=== PATIENT | female | born 1995 | race Asian ===

== ENCOUNTER 2025-06-01 08:40 | Inpatient (IN) | payer BC, SELFPAY ==
--- NOTE | 2025-05-31 07:38 | PC.NURSE ---
PT ON PHONE, INFORMED OF NO BEDS AVAILABLE AT THIS TIME FOR IOL, EDUCATED ON KICK COUNT AND LABOR PRECAUTIONS, INFORMED OF WILL CALL PT ONCE BED BECOMES AVAILABLE, PT VERBALIZED UNDERSTANDING
[2025-06-01] VITALS (99 sets, daily range): BP systolic 112–155; BP diastolic 63–95; PULSE 74–117; RESP 17; TEMP 36.6–36.9; O2SAT 92–99; BMI 28.3
--- NOTE | 2025-06-01 09:57 | PD.LDHP ---
Documentation for date of: 06/01/25 OB Labor/Induct. HPI History of Present Illness History of present illness: H and P dictated STAT in [facility] on line #9. [id number] Meds Home Medications and Allergies Allergies Allergy/AdvReac Type Severity Reaction Status Date / Time No Known Allergies Allergy Verified 06/01/25 09:50 OB Exam Physical Exam Vital signs: Pulse BP 94 138/78 H 06/01/25 09:56 06/01/25 09:56
[2025-06-01 09:58] LABS: Basophils # (Auto) 0.1 Thou/mm3 (0.0-0.2); Basophils % (Auto) 1 % (0-2.5); Eosinophils # (Auto) 0.1 Thou/mm3 (0.0-0.5); Eosinophils % (Auto) 1 % (0-10); Hematocrit 38.4 % (36.0-46.0); Hemoglobin 12.5 g/dL (12.0-16.0); Immature Granulocytes Auto 0.04 Thou/mm3 (0.00-0.00); Lymphocytes # (Auto) 2.0 Thou/mm3 (1.0-4.8); Lymphocytes % (Auto) 24 % (10-50); Mean Corpuscular HGB Conc 32.6 g/dl (31.0-37.0); Mean Corpuscular Hemoglobin 25.5 pg (25.0-35.0); Mean Corpuscular Volume 78 fL (80-100); Monocytes # (Auto) 0.7 Thou/mm3 (0.0-0.8); Monocytes % (Auto) 8 % (0-12); Neutrophils # (Auto) 5.7 Thou/mm3 (1.8-7.7); Neutrophils % (Auto) 66 % (37-80); Nucleated Red Blood Cell # 0.00 Thou/mm3 (0.00-0.00); Nucleated Red Blood Cell % 0 /100 WBC (0); Platelet Count 283 Thou/mm3 (140-440); RDW Standard Deviation 39.0 fL (36.4-46.3); Red Blood Count 4.91 Miln/mm3 (4.00-5.20); White Blood Count 8.6 Thou/mm3 (3.6-11.0)
--- NOTE | 2025-06-01 10:17 | ESHP_ITS ---
RE: FLAVIO BLUM : 1995 DATE OF ADMISSION: 06/01/2025 This is a 29-year-old 2 para 1-0-0-1 with due date of 06/04 with intrauterine at 39 weeks and 4 days who presents to labor and delivery for induction of labor for gestational diabetes mellitus class A1 well-controlled. Patient has had serial maternal medicine ultrasounds throughout her which have shown normal anatomy and adequate interval growth. The most recent ultrasound on 05/02 showed growth at the 29th percentile. She denies any leaking or bleeding. She reports normal movement. ALLERGIES: NO KNOWN DRUG ALLERGIES. MEDICATIONS: 1. multivitamin 1 p.o. daily. 2. Aspirin 81 mg 1 p.o. daily. SOCIAL HISTORY: She denies any alcohol, drug use or smoking. PAST MEDICAL HISTORY: delivery at 32 weeks gestation. Gestational diabetes mellitus class A1. PAST SURGICAL HISTORY: Denies. OBSTETRIC HISTORY: On 06/03/2018 a 32-week normal vaginal delivery of a 4-pound male, complicated by spontaneous labor. REVIEW OF SYSTEMS: She denies any chest pain, palpitations, cough, fever, flank pain, shortness of breath, or lower extremity pain. PHYSICAL EXAMINATION: GENERAL: Blood pressure initially 140/91, repeat 119/74. Heart rate 88. Respiration 18. Temperature is 98.6. HEENT: Oropharynx and sclerae clear. LUNGS: Clear to auscultation bilaterally. HEART: Regular rate rhythm. ABDOMEN: Gravid, consistent with estimated weight of 7-3/4 pounds. PELVIC: Exam per RN is 4 cm dilated, 70% effaced, -3 station, vertex, intact. EXTREMITIES: Nontender. SKIN: No gross rashes or lesions. NEUROLOGICAL: No focal deficit. ASSESSMENT AND PLAN: 1. Intrauterine at 39 weeks and 4 days. 2. Gestational diabetes mellitus class A1, well-controlled. 3. Induction of labor. Anticipate spontaneous vaginal delivery. Informed consent was obtained. The patient is made aware of the risk, complication, alternative, and benefits of operative vaginal delivery and delivery. She agrees with these modes of delivery if indicated. DT: 09:50:12 TT: 10:15:00 Ref: [id number] - TID: [id number]
[2025-06-01 10:48] LABS: Syphilis Nonreactive (Nonreactive)
[2025-06-01] MEDS: OXYTOCIN in NS 30 units 30 UNIT/500 ML BAG IV (10:55)
[2025-06-01 11:19] LABS: Alanine Aminotransferase < 7 U/L (10-49); Albumin, Serum 4.1 gm/dL (3.5-5.0); Albumin/Globulin Ratio 1.9 (1.2-2.2); Alkaline Phosphatase 162 U/L (46-116); Anion Gap 11 (7-16); Aspartate Amino Transferase 19 U/L (0-34); BUN/Creatinine Ratio 10 Ratio (12-20); Bilirubin,Total 0.4 mg/dL (0.3-1.2); Blood Urea Nitrogen 7 mg/dL (9-23); Calcium 10.1 mg/dL (8.3-10.6); Calcium (Corrected) 10.1 mg/dL (8.5-10.1); Carbon Dioxide 23.4 mMol/L (20.0-31.0); Chloride 105 mMol/L (98-107); Creatinine (Component) 0.7 mg/dL (0.6-1.3); Estimated Creatinine Clearance 94.3 mL/min (>60); Globulin 2.2 gm/dL (2.3-3.5); Glucose 90 mg/dL (74-106); Osmolality,Calculated 275 (275-295); Potassium 4.4 mMol/L (3.4-5.1); Sodium 139 mMol/L (136-145); Total Protein 6.3 gm/dL (5.7-8.2); Uric Acid 5.4 mg/dL (3.1-7.8); eGFR > 60 See Note
[2025-06-01 11:31] LABS: Fibrinogen 500 mg/dL (175-375); INR 0.9 (0.9-1.3); Partial Thromboplastin Time 27.7 Seconds (22.0-36.0); Prothrombin Time 9.5 Seconds (9.0-12.2)
[2025-06-01 14:18] LABS: Collection Type, Urine Clean Catch
[2025-06-01 14:43] LABS: Bacteria,Urine 1+; Bilirubin,Urine Negative (Negative); Blood,Urine Negative (Negative); Clarity,Urine Clear (Clear/Hazy); Color,Urine Lt-Yellow (Lt Yel-Yel); Glucose, Urine Negative (Negative); Ketones,Urine Negative (Negative); Leukocyte Esterase,Urine Positive (Negative); Nitrite,Urine Negative (Negative); PH,Urine 6.5 (5.0-7.0); Protein,Urine Negative (Neg - Trace); RBC,Urine 1 /hpf (0-3); Specific Gravity,Urine 1.007 (1.001-1.035); Squamous Epithelial Cell,Urine 8 /hpf (0-5); Urobilinogen,Urine Negative mg/dL (0.0-1.0); WBC,Urine 5 /hpf (0-5)
[2025-06-01 14:51] LABS: Creatinine,Random Urine 39 mg/dL (30-125); Protein Total, Random Urine 10 mg/dL (1-14)
[2025-06-01] MEDS: RINGERS LACTATED 1000 ML 1,000 ML 100 ML IV (16:16)
[2025-06-02] VITALS (100 sets, daily range): BP systolic 121–149; BP diastolic 63–91; PULSE 80–128; RESP 15–18; TEMP 36.4–37; O2SAT 90–99
[2025-06-02] MEDS: OXYTOCIN in NS 20 units 20 UNIT/1,000 ML BAG 125 UNIT IV (03:59)
[2025-06-02] MEDS: METHYLERGONOVINE INJ 0.2 MG/ML VIAL IM (04:02)
[2025-06-02] MEDS: BENZO/LANO/ALOE (Dermoplast) 60 GM CAN 1 SPRAY TOP (04:15)
--- NOTE | 2025-06-02 04:17 | PD.LDDS ---
DS: Providers Provider Date of admission: 06/01/25 08:40 Primary care physician: Danny Willis MD Admitting Provider: Angus Sun MD Attending Provider on Admission: Angus Sun MD Attending Provider on DC: Angus Sun MD Discharging Provider: Angus Sun MD DS: Diagnosis Problem List Completed Was Problem List Reviewed/Reconciled?: Yes Summary/Hosp Course Brief History: H and P dictated STAT in [facility] on line #9. [id number] Peripartum Data Delivery Method: Operative Vaginal Delivery Episiotomy Description: None Laceration Description: see Delivery Summary 1: Gender: Female Disposition of : home Time Spent with Patient Time attestation: Total time spent providing and/or coordinating discharge services: Exam Vital Signs Temp Pulse Resp BP Pulse Ox O2 Del Method 97.6 F 111 H 16 129/66 98 Room Air 06/02/25 01:31 06/02/25 04:04 06/02/25 01:31 06/02/25 04:04 06/02/25 04:13 06/02/25 01:31 Discharge Plan Plan Patient Disposition: HOME (Self Care) Patient condition on transfer: Stable Prescriptions/Referrals Prescriptions/Med Rec: New ibuprofen 600 mg tablet 600 mg PO Q6H PRN (Reason: pain) Qty: 30 0RF Referrals: Danny Willis MD [Primary Care Provider, Family Practice] Patient/Caregiver Discharge Instructions Discharge Activity: activity as tolerated Other Discharge Activity Instructions:: Follow up office 6 weeks. Print Language: [place] Stand Alone Forms: Trud[facility] Award Info., Patient Portal Info Letter Planned Discharge Date 06/03/25
--- NOTE | 2025-06-02 04:18 | OBDSUM_ITS ---
Vacuum Assisted Delivery General Patient Counseled by physician:: Yes Informed consent to patient:: Yes Estimated weight:: 7 lb 8 oz Cervical dilation:: fully dilated station:: +3 position:: OA Molding:: No Caput:: No Vacuum Application Vacuum type:: Mityvac Vacuum application:: flexing median Total vacuum time (min):: 2 Maximum pressure (cm Hg):: 50 Cup Placement Flexion point identified:: Yes Cup approp. for head position:: Yes Maternal tissue excluded:: Yes Vacuum Procedure Number of pulls (contractions):: 1 Number of pop-offs:: 0 Recommended range maintained:: Yes Vacuum reduced between pulls:: Yes Advancement made each pull:: Yes Vacuum successful:: Yes Immediate Evaluation Immediate assessment:: no apparent injury Hand-off care to:: nursery nurse Delivery Data ([place]) Labor Data Initiation of labor: Spontaneous Induction/Augmentation Agent: Pitocin ROM date: 06/02/25 ROM time: 02:45 Amniotic membrane rupture type: Spontaneous Amniotic fluid description: Clear Delivery Data EDC: 06/07/25 EDC calculated by:: LMP/early US confirmation Onset of labor date: 06/01/25 Onset of labor time: 21:25 Complete dilation date: 06/02/25 Complete dilation time: 02:50 [place] delivery date: 06/02/25 [place] delivery time: 03:56 Gestational age (weeks): 40 Gestational age (days): 2 Placenta delivery date: 06/02/25 Placenta delivery time: 04:01 Stage 1 total time: Labor - Stage 1 Duration 5 hours and 25 minutes Delivered by: Angus uSn Delivery nurse: Bj Schreiber RN [facility] nurse: Sean Rivera RN [employer] Picking Machine Operator at delivery: No Support person(s) at delivery: FOB Other staff at delivery: Lindsay Harris RN Delivery Method Delivery method: Operative Vaginal Delivery Presentation: Vertex position: OA Anesthesia Type Anesthesia Type: Epidural Placenta Placenta delivery description: Spontaneous Cord blood sent to lab: Yes cord blood collection: Cord Blood Type Episiotomy Episiotomy description: None Lacerations #1: Perineal: 2nd degree Perineal repair Sutures used for repair: 3.0 Chromic EBL Estimated blood loss (ml): 350 Umbilical Cord cord description: 3 Vessels Complications Complications: Uterine atony Data ([place]) Data order: 1 [place] gender: Female 1 minute: 9 5 minutes: 9
[2025-06-02] MEDS: IBUPROFEN TAB 400 MG TABLET 800 MG PO ×2 (04:26→12:45)
[2025-06-02 11:41] LABS: Basophils # (Auto) 0.1 Thou/mm3 (0.0-0.2); Basophils % (Auto) 0 % (0-2.5); Eosinophils # (Auto) 0.0 Thou/mm3 (0.0-0.5); Eosinophils % (Auto) 0 % (0-10); Hematocrit 35.1 % (36.0-46.0); Hemoglobin 11.8 g/dL (12.0-16.0); Immature Granulocytes Auto 0.09 Thou/mm3 (0.00-0.00); Lymphocytes # (Auto) 2.1 Thou/mm3 (1.0-4.8); Lymphocytes % (Auto) 13 % (10-50); Mean Corpuscular HGB Conc 33.6 g/dl (31.0-37.0); Mean Corpuscular Hemoglobin 26.0 pg (25.0-35.0); Mean Corpuscular Volume 78 fL (80-100); Monocytes # (Auto) 1.1 Thou/mm3 (0.0-0.8); Monocytes % (Auto) 6 % (0-12); Neutrophils # (Auto) 13.4 Thou/mm3 (1.8-7.7); Neutrophils % (Auto) 80 % (37-80); Nucleated Red Blood Cell # 0.00 Thou/mm3 (0.00-0.00); Nucleated Red Blood Cell % 0 /100 WBC (0); Platelet Count 225 Thou/mm3 (140-440); RDW Standard Deviation 38.5 fL (36.4-46.3); Red Blood Count 4.53 Miln/mm3 (4.00-5.20); White Blood Count 16.8 Thou/mm3 (3.6-11.0)
[2025-06-03 04:08] VITALS: BP 119/83; PULSE 92; RESP 18; TEMP 36.5; O2SAT 97
[2025-06-03] MEDS: IBUPROFEN TAB 400 MG TABLET 800 MG PO (04:24)
--- NOTE | 2025-06-03 07:34 | ESPR_ITS ---
RE: FLAVIO BLUM : 1995 DATE OF SERVICE: 06/03/2025 SUBJECTIVE: day #1, the patient denies any problem or complaint. She is voiding. She is ambulating. She is tolerating regular diet. She is passing flatus. She denies any excessive vaginal bleeding. She denies any dizziness or lightheadedness. She denies any chest pain palpitation shortness of breath or lower extremity pain. OBJECTIVE: VITAL SIGNS: Blood pressure 119/83, heart rate 92, respiration 18, temperature is 97.7, pulse ox is 97% on room air. LUNGS: Clear to auscultation bilaterally. HEART: Regular rate and rhythm. ABDOMEN: Fundus is firm. EXTREMITIES: Nontender. LABORATORY DATA: Hemoglobin predelivery is 12.5 and postdelivery is 11.8. ASSESSMENT: day #1 status post spontaneous vaginal delivery. PLAN: Plan is discharge home when baby is cleared. Discharge instructions given. Follow up in the office in 6 weeks. DT: 07:10:44 TT: 07:34:00 Ref: [id number] - TID: [id number]
[2025-06-03 08:10] VITALS: BP 115/78; PULSE 86; RESP 17; TEMP 36.7; O2SAT 97
== END 2025-06-03 13:40 | disposition home or self-care (01) | DRG 807 ==
LOC: S4SX 06-02 04:14 → S4NX 06-02 09:09
PROVIDERS: Admitting Provider Specialist; PCP Family Medicine; Visit Provider Specialist
DX: O24.420 Gestational diabetes mellitus in childbirth, diet controlled (principal); Z37.0 Single live birth; Z3A.39 39 weeks gestation of pregnancy; O70.1 Second degree perineal laceration during delivery; O62.2 Other uterine inertia
CPT/HCPCS: 36415; 59409; 80053; 81001; 82570; 84156; 84550; 85025; 85384; 85610; 85730; 86780; 86850; 86900; 86901; 94762; J2210; J2590; J2795; J7120; S0191; A9270

== ENCOUNTER 2025-06-10 15:47 | Outpatient (AMBR) | payer BC, SELFPAY ==
--- NOTE | 2025-06-10 15:05 | LACNOTE_ITS ---
Assessment LAC OP History History History Comment: first baby was 7 years ago, he was 32 weeks at and was in the NICU for 1 month. she started to pump but didn't get much and since they were formula feeding in the NICU, she decided to just stop and do formula. This is her second baby and she really hopes to be this one LAC Breast Assessment Breast Assessment Bilateral: Breast Assessment Comment: both breasts are large, firm, but not full. her left nipple everts no problem, her right looks flat, but everts after stimulation. LAC Pain Pain Left Nipple: Pain Intensity: Tender Character of Pain: Burning Pain Comment: tissue break down on the tip of left nipple, much better at this time, mom has been pumping, not latching baby so skin can heal. Alternative Milk Expression Alternative Milk Expression Alternative Method Used: Yes Method Used: Pumping Alternative Method Comment: mom has been using a hands free pump since delivery, only gets about 1 ounced combined with this pump. explained that a [employer] grade pump in needed in the first few weeks after delivery to assure that she is emptying her breasts. also she used this when they are readmitted for baby have jaundice. Alternative Method Used Reason: Mother / Baby Separation, Poor Feeding and Sore Nipples Alternative Method Produced Milk / Colostrum: Yes Production Amount: 30 Production ounces or mls: mls Pump Used: Electric Pumping Frequency Per Day: 8 Pumping Frequency Comment: mom states she is pumping after every feed baby has, and it is double pumping for about 20-30 minutes LAC Assessment Breast Feeding Assessment Date of : 06/02/25 Current Age of baby: 8 (days) Weight: 3118.448 g Current weight of baby: 3175.147 g [place] # of Stool voids in last 24 hrs: 8 Stool Size: Medium Color of Stools: brown # of Urine voids in last 24 hrs: 5 Color of Urine: clear to yellow Breast Feeding Ability: Well Complications: Jaudiced [place] Complications Comment: baby is home after being readmitted for jaundice. mom states that she was under lights for 1 1/2 days. [place] Activity Level: Awake / Alert and Rooting Muscle Tone: With In Normal Limits Suck Quality: Areolar Compression, Rhythmic and Tongue Cups Well Effective Suck: Yes Swallow: Audible and Observed [place] Jaw: With In Norml Limits Lip Seal: Good and Tight Lips Feeding Posistion: Cross Cradle Additional Latch or Posistion Assistance Needed: Minimal Breast Feeding Comment: baby tolerates the nipple shield well, we do have to work to get lips to flange, but she does maintain this hold. Pre Weight (before feeding): 3175.147 g Post Weight (post feeding): 3345.244 g % gained or lost: 5% Gain LAC Intervention Interventions Tools: Nipple Shield Other Tools: issued lanolin, as mom has some tissue breakdown from previous bad lactches Nipple Shield Size: Medium Techniques Discussed: Latch, Position and Pumping Engorgement Techniques Discussed: Warm Compress Discharge Follow Up Appointment Date and Time: June 17, 2025 Other Referral Made: No LAC [place] Oral Assessment Oral Assessment Prenulum Level: Normal Lip: Tight Upper Lip Palate: Normal / Intact Dental Referral made: No OP DC Assessment Discharge Follow Up Appointment Date and Time: June 17, 2025 Other Referral Made: No Visit Complete?: Yes
== END 2025-06-16 23:59 | disposition home or self-care (01) ==
LOC: HODLAC 15:47
DX: Z39.1 Encounter for care and examination of lactating mother (principal)